=== PATIENT | female | born 1990 | race Hispanic/Latino ===

== ENCOUNTER 2016-12-30 05:22 | Emergency (ER) | payer OTHER ==
[~2016-12-30] VITALS: Ht 157.5 cm; Wt 75.0 kg
[~2016-12-30 05:22] MED LIST: AMOX500C2 PO; ASCO-294 PO; Docusate Sodium PO; FERR-83 PO; HYDR-3481 PO; HYDR-4150 PO; IBUP800T28 PO; MDR150V; OMEP20TA24 PO; ONDA4TAB6 PO; PREN-20 PO; PREN1TAB73 PO
[2016-12-30 05:25] VITALS: BP 112/70; PULSE 107; RESP 16; O2SAT 99
--- NOTE | 2016-12-30 06:33 | ED.REPORT ---
HPI-Preg Under 20 Weeks Date of Service Dec 30, 2016 ED Provider: Parth Figueroa MD The patient is a 26 year old female with history of UTIs and ovarian cysts who presents to the emergency department complaining of vaginal bleeding that began at midnight last night. She describes the amount of blood as "spotting." She has also noticed pelvic cramping and dysuria over the last few days. She found out she was about 1.5 weeks ago. Her LNMP was at the end of October. She has noticed cramping with her previous pregnancies. She is concerned she may have a UTI. Nursing Notes Stated Complaint: CRAMPING/SPOTTING,RECENTLY Chief Complaint: & Delivery Nursing Notes Reviewed: Yes Allergies: Coded Allergies: No Known Allergies (Verified , 02/13/09) Scheduled ([Docusate Sodium]) 100 MG CAPSULE 100 MG PO BID Amoxicillin (Amoxicillin) 500 Mg Capsule 500 MG PO TID Ascorbate Calcium (Vitamin C) 500 Mg Tablet 500 MG PO DAILY Cephalexin (Keflex) 500 Mg Capsule 500 MG PO QID Ferrous Sulfate (Ferrous Sulfate) 325 Mg Tablet 325 MG PO DAILY Hydrocod/APAP-Expunged, Do Not Renew! (VICODIN 7.5/300-Expunged Drug, Do Not Renew) 1 Each Tablet 1-2 EACH PO Q3-4H Pnv with Ca,No.71/Iron/FA ( Vitamin Tablet) 1 Each Tablet 1 EACH PO DAILY Scheduled PRN Hydrocodone/Acetaminophen ([place] 5-325 Tablet) 1 Tablet Tablet 1-2 TABLET PO Q4H PRN PRN For Pain Ibuprofen (Ibuprofen) 800 Mg Tablet 800 MG PO Q6H PRN PRN For Pain Omeprazole Magnesium (Prilosec Otc) 20 Mg Tablet.dr 20 MG PO BID PRN PRN For Dyspepsia or Heartburn Ondansetron (Zofran) 4 Mg Tablet 4 MG PO q4 to 6 hr PRN PRN For Nausea Miscellaneous Medications MedroxyPROGESTERone (Depo-Provera) 150 Mg/Ml Susp Vit/Iron Fumarate/FA ( Vitamin Tablet) 1 Each Tablet 1 EACH PO General Time Seen by Provider: 06:33 Chief Complaint Vaginal bleeding Context: : Known 1st trim , ... (5), Para... (4) Hx Obtained From: Patient Arrived By: Walk-in Onset Occurred: 5 - 8 hours ago Symptom Duration: Since onset Progression Since Onset: Constant Location: : Suprapubic Quality: Cramping Severity: Current: Mild Severity: Maximum: Moderate Recent Healthcare: No recent doctor visit, No recent hospitalization Similar Sx Previous: Yes Past Medical History Past Medical History Back pain Ovarian cysts UTI's Past Surgical History Reports: Cholecystectomy Family History Noncontributory Smoking History Former Smoker Social History Alcohol Use: "Social" Drug Use: Denies drug use Other Social History: Lives with parents, Lives with children Occupation Works at [employer] in [place]. Ambulatory Status Independent Review of Systems Female: Reports: Dysuria, Pelvic pain, , Vaginal bleeding - abnl Complete sys rev & neg: except as marked. Physical Exam Initial Vital Signs Vital Signs (First) Date Time Temp Pulse Resp B/P Pulse Ox O2 Delivery O2 Flow Rate FiO2 12/30/16 05:25 36.5 107 16 112/70 99 Room Air Initial VS: Reviewed Head / Eyes: Atraumatic, Normocephalic, PERRL ENT: Mucous membranes moist, Conjunctiva normal, No scleral icterus Neck: Supple, Non-tender, Full range of motion Respiratory: Breath sounds normal, Clear to auscultation, No respiratory distress Cardiovascular: Regular rate & rhythm, Heart sounds normal, Intact distal pulses Back: No CVA tenderness Lymphatic: No lymphadenopathy Extremities: Vascular intact, Neuro intact, No swelling, No tenderness Skin: Warm, Dry, No cyanosis Neurologic: Alert, Oriented, Nonfocal Psychiatric: Mood/affect normal, Behavior normal, Normal thought content General/Constitutional: Awake, Alert Abdomen: Soft, No guarding, No rebound, BS normoactive, No distention, No hernia, No palpable mass, No pulsatile mass Tenderness/Guarding/Rebound: Positive: Tender suprapubic Interpretation & Diagnostics Interpretation & Diagnostics: PELVIC US: single viable IUP. Urine : positive Urine dip: trace leukocytes, trace blood, negative nitrites Lab Results Interpretation Test 12/30/16 06:00 12/30/16 07:05 Hold Urine Received (Received) HCG Beta Subunit [id number]/mL Re-Eval/Medical Decision Med Decision/Clinical Course 26-year-old at 8 weeks by last menstrual period presenting with vaginal spotting today. It resolved prior to arrival. Transvaginal ultrasound showed intrauterine at 9 weeks 5 days with small subchorionic bleed. Her vaginal bleeding resolved she was here. HCG was sent. She is Rh+. She advised to return in 2 days for repeat hCG return sooner if any worsening vaginal bleeding, signs/symptoms of anemia, any other new or worsening symptoms. Source of Hx: Old records Re-Evaluation/Progress : Time of Eval: 09:44 Re-Evaluation/Progress Note: Rechecked the patient. Discussed results, diagnosis, and plan for discharge. All questions were addressed. Counseled Regarding: Diagnosis, Lab results, Need for follow-up, When/why to return to ED Discharge & Departure Primary Impression: Intrauterine Additional Impressions: UTI (urinary tract infection) Urinary tract infection type: site unspecified Hematuria presence: without hematuria Qualified Code: N39.0 - Urinary tract infection, site not specified Threatened miscarriage Disposition: Home Discharge Condition All VS Reviewed: Yes Condition: Stable Patient Instructions: (ED), Threatened Miscarriage (ED) Additional Instructions: Thank you for entrusting us with your care today. Your ultrasound today shows an intrauterine with good heart tones. Sometimes it is normal to have some spotting in the first trimester. There is still a possibility that you may have a miscarriage. Your HCG today was 74675. You should followup get a repeat HCG in the next 2 days. You can call your OBGYN today to see if they can schedule this. If you are unable to have the repeat HCG scheduled by your OBGYN then you can come back here to have this drawn. Your urine showed evidence of a UTI. We will place you on the antibiotic Keflex. Please return to the emergency department for increased pain, severe vaginal bleeding, lightheadedness, dizziness, fatigue, or any other new or concerning symptoms. Referrals: Pearl Doll MD (PCP) Néstor Attestation Portions of this note were transcribed by Silvana Watson. I, Dr. Figueroa personally performed the history, physical exam and medical decision-making; I reviewed and confirmed the accuracy of the information in the transcribed note. Signed by: Néstor Jacobsen, 12/30/2016 1015. copies to: Pearl Doll MD, Ben M MD Dec 30, 2016 06:33 Silvana Watson Dec 30, 2016 06:38
[2016-12-30 10:12] VITALS: BP 117/67; PULSE 85; RESP 18; O2SAT 98
[2016-12-30] MEDS ORDERED: CEPH-512 PO (10:12)
--- NOTE | 2016-12-30 13:02 | DRSVH ---
PROCEDURE: US OB<14 WKS+OB TRANSVAG INDICATIONS: 1st trimester vaginal bleeding. OUTSIDE/PRIOR DATING DATA: Last menstrual period (LMP): Not available. LMP-based estimated date of delivery ([facility]): Not available. First dating scan (date and location): 12/30/2016. Estimated date of delivery (BR[facility]) from first dating scan: 07/30/2017. TECHNIQUE: Real-time scanning was performed of the fetus and maternal pelvic organs, with image documentation. Endovaginal scanning was also performed to better visualize the fetus and maternal ovaries. COMPARISON: None. FINDINGS: Embryo: There is a single living intrauterine gestation with the estimated gestational age 9 weeks a nd 2 days based on the crown-rump length. The cardiac activity is present with heart rate 160 BPM. Comments: A normal yolk sac is noted. Small perigestational bleeds is present measuring 1.6 cm x 0.5 cm.. Measurement variability in dating: +/- 4 weeks by LMP, +/- 7 days by mean sac diameter (use before 6 weeks gestation if crown-rump length not able to be measured), +/- 5 days by crown-rump length (6-12 weeks gestation). Maternal organs: There is a corpus luteal cyst and a simple cyst in left ovary. The right ovary is gr ossly normal. Limited images through the kidneys demonstrate no hydronephrosis. IMPRESSION: 1. A single living intrauterine gestation with the estimated gestational age of 9 weeks and 5 days ba sed on current ultrasound. Ultrasound EDC 07/30/2017. There is a small perigestational bleed. 2. A corpus of the cyst and a simple cyst are noted in left ovary. Dictated by: Damari Slaughter M.D. on 12/30/2016 at 12:55 Approved by: Damari Slaughter M.D. on 12/30/2016 at 13:02
== END 2016-12-30 10:13 | disposition home or self-care (01) ==
LOC: SED 05:22
DX: O23.41 Unspecified infection of urinary tract in pregnancy, first trimester (principal); O20.0 Threatened abortion; Z3A.01 Less than 8 weeks gestation of pregnancy; Z87.891 Personal history of nicotine dependence; Z87.440 Personal history of urinary (tract) infections; Z87.42 Personal history of other diseases of the female genital tract